=== PATIENT | male | born 1970 | race Caucasian/White ===

== ENCOUNTER 2019-02-24 13:00 | Inpatient (IN) | payer OTHER ==
[~2019-02-24] VITALS: Ht 193 cm; Wt 131.5 kg
[2019-02-24] MEDS ORDERED: ZESTRIL40 M1 PO (14:11)
[2019-03-04] MEDS ORDERED: LORATADINE10 MG PO (08:34)
[2019-03-04] MEDS ORDERED: LISINOPRIL40 MG PO (08:34)
[2019-03-04] MEDS ORDERED: GABAPENTIN300 MG PO (08:35)
[2019-03-04] MEDS ORDERED: PANTOPRAZOLE SO40 MG PO (08:35)
[2019-03-04] MEDS ORDERED: SIMETHICONE125 M1 PO (08:35)
[2019-03-04] MEDS ORDERED: CARAFATE1 GM PO (08:37)
[2019-03-04] MEDS ORDERED: OXYC1TAB9 PO (13:02)
== END 2019-03-04 15:05 | disposition home or self-care (01) | DRG 331 ==
LOC: EDSTATUS 13:00 → ADM 13:00 → SURH 02-27 08:30 → O/R 02-27 08:30 → SURH 02-27 11:30 → SURG 02-27 15:35 → SURH 02-27 16:02
PROVIDERS: ADMIT Surgery
PROC: 07TB4ZZ Resection of Mesenteric Lymphatic, Percutaneous Endoscopic Approach (ICD-10-PCS; 2019-02-27)
PROC: 0DTF4ZZ Resection of Right Large Intestine, Percutaneous Endoscopic Approach (ICD-10-PCS; principal; 2019-02-27 11:30)
DX: D12.0 Benign neoplasm of cecum (principal); K57.30 Diverticulosis of large intestine without perforation or abscess without bleeding; R59.0 Localized enlarged lymph nodes; K63.89 Other specified diseases of intestine; I10 Essential (primary) hypertension; K91.0 Vomiting following gastrointestinal surgery